=== PATIENT | male | born 1980 | race Caucasian/White ===

== ENCOUNTER 2018-02-19 14:37 | Emergency (ER) | payer OTHER ==
[~2018-02-19] VITALS: Ht 182.9 cm; Wt 103.0 kg
[~2018-02-19 14:37] MED LIST: CLON-527 PO; CLON-529 PO; HYDR-3686 PO; PER10325T PO; TRAZ150T78 PO
[2018-02-19] MEDS ORDERED: naloxone 2mg/2ml inj IV STA (14:39)
[2018-02-19] MEDS ORDERED: ondansetron/PF 4mg/2ml inj IV ONE (14:40)
[2018-02-19] MEDS ORDERED: normal saline 1000ML IV soln IVB ONE (14:40)
[2018-02-19] MEDS ORDERED: naloxone 2mg/2ml inj ONE (14:43)
[2018-02-19] MEDS ORDERED: naloxone 2mg/2ml inj IM STA (14:50)
[2018-02-19 15:13] LABS: BASOPHILS % (AUTO) 0.2 % (0-1); EOSINOPHILS # (AUTO) 0.2 X10'3 (0-0.9); HEMATOCRIT 44.4 % (42.0-52.0); HEMOGLOBIN 15.5 g/dl (14.0-17.9); LYMPHOCYTES # (AUTO) 0.6 X10'3 (1.1-4.8); LYMPHOCYTES % (AUTO) 6.7 % (21-51); MEAN CORPUSCULAR HEMOGLOBIN 32.5 PG (27.0-31.0); MEAN CORPUSCULAR VOLUME 92.9 FL (78-98); MEAN PLATELET VOLUME 9.2 FL (7.4-10.4); MONOCYTES # (AUTO) 0.5 X10'3 (0-0.9); MONOCYTES % (AUTO) 5.3 % (2-12); NEUTROPHILS # (AUTO) 8.2 X10'3 (1.8-7.7); NEUTROPHILS % (AUTO) 85.8 % (42-75); PLATELET COUNT 139 X10'3 (140-440); RED BLOOD COUNT 4.78 X10'6 (4.70-6.10); RED CELL DISTRIBUTION WIDTH 12.9 % (11.5-14.5); WHITE BLOOD COUNT 9.6 X10'3 (4.5-11.0)
[2018-02-19 15:28] LABS: ALANINE AMINOTRANSFERASE 199 U/L (12-78); ALBUMIN 3.8 G/DL (3.4-5.0); ALBUMIN/GLOBULIN RATIO 1.1 (1.1-1.5); ALKALINE PHOSPHATASE 60 IU/L (46-116); ANION GAP 10 (8-16); ASPARTATE AMINO TRANSFERASE 533 U/L (10-37); BILIRUBIN,TOTAL 1.1 MG/DL (0.1-1.0); BLOOD UREA NITROGEN 17 MG/DL (7-18); BUN/CREATININE RATIO 17.2 (5.4-32.0); CALCIUM 8.9 MG/DL (8.5-10.1); CHLORIDE 101 MMOL/L (99-107); CREATININE 0.99 MG/DL (0.60-1.10); GLUCOSE 154 MG/DL (70-104); POTASSIUM 3.5 MMOL/L (3.5-5.1); SODIUM 139 MMOL/L (135-145); TOTAL CARBON DIOXIDE 27.8 MMOL/L (24-32); TOTAL PROTEIN 7.2 G/DL (6.4-8.2); eGFR 86 ML/MIN
[2018-02-19 18:03] VITALS: BP 156/82
[2018-02-23] MEDS ORDERED: CLON0.1T20 PO (14:16)
== END 2018-02-19 18:08 | disposition home or self-care (01) ==
LOC: ER 14:37
DX: T40.1X1A Poisoning by heroin, accidental (unintentional), initial encounter (principal); F11.10 Opioid abuse, uncomplicated; Z79.899 Other long term (current) drug therapy; Y92.89 Other specified places as the place of occurrence of the external cause
CPT/HCPCS: 36415; 80053; 85025; 93005; 96361; 96374; 96375; 99285; J2310; J2405; J7030

== ENCOUNTER 2019-07-15 05:09 | Emergency (ER) | payer OTHER ==
[~2019-07-15] VITALS: Ht 185.4 cm; Wt 97.0 kg
[~2019-07-15 05:09] MED LIST changes: -CLON-529 PO; +CLON0.1T2 PO; -PER10325T PO
[2019-07-15] MEDS ORDERED: normal saline 1000ML IV soln IVB ONE ×2 (05:15→06:05)
[2019-07-15 05:38] LABS: BASOPHILS % (AUTO) 0.3 % (0-1); EOSINOPHILS % (AUTO) 0.4 % (0-6); HEMATOCRIT 48.3 % (42.0-52.0); HEMOGLOBIN 16.9 g/dl (14.0-17.9); LYMPHOCYTES # (AUTO) 1.4 X10'3 (1.1-4.8); LYMPHOCYTES % (AUTO) 18.1 % (21-51); MEAN CORPUSCULAR HEMOGLOBIN 33.7 PG (27.0-31.0); MEAN CORPUSCULAR HGB CONC 34.9 g/dL (33.0-36.5); MEAN CORPUSCULAR VOLUME 96.4 FL (78-98); MEAN PLATELET VOLUME 9.7 FL (7.4-10.4); MONOCYTES # (AUTO) 0.5 X10'3 (0-0.9); MONOCYTES % (AUTO) 6.1 % (2-12); NEUTROPHILS # (AUTO) 5.8 X10'3 (1.8-7.7); NEUTROPHILS % (AUTO) 75.1 % (42-75); PLATELET COUNT 145 X10'3 (140-440); RED BLOOD COUNT 5.01 X10'6 (4.70-6.10); RED CELL DISTRIBUTION WIDTH 12.8 % (11.5-14.5); WHITE BLOOD COUNT 7.7 X10'3 (4.5-11.0)
[2019-07-15 05:50] LABS: ALANINE AMINOTRANSFERASE 37 U/L (12-78); ALBUMIN 3.9 G/DL (3.4-5.0); ALKALINE PHOSPHATASE 76 IU/L (46-116); ANION GAP 15 (8-16); ASPARTATE AMINO TRANSFERASE 33 U/L (10-37); BILIRUBIN,TOTAL 0.8 MG/DL (0.1-1.0); BLOOD UREA NITROGEN 14 MG/DL (7-18); BUN/CREATININE RATIO 11.5 (5.4-32.0); CALCIUM 9.2 MG/DL (8.5-10.1); CHLORIDE 105 MMOL/L (99-107); CREATININE 1.22 MG/DL (0.60-1.10); ETHANOL 0.022 GM/DL (0.0-0.010); GLUCOSE 197 MG/DL (70-104); POTASSIUM 3.1 MMOL/L (3.5-5.1); SODIUM 145 MMOL/L (135-145); TOTAL CARBON DIOXIDE 25.1 MMOL/L (24-32); TOTAL PROTEIN 7.8 G/DL (6.4-8.2); eGFR 67 ML/MIN
[2019-07-15] MEDS ORDERED: POTASSIUM BICARB 20meq eff tab 20 MEQ TABLET.EFF PO ONE (06:05)
[2019-07-15] MEDS ORDERED: furosemide 10 MG/1 ML 10ml inj IV ONE (06:30)
[2019-07-15] MEDS ORDERED: CLON0.1T2 PO (06:35)
[2019-07-15] MEDS ORDERED: FISH12002 PO (06:35)
[2019-07-15] MEDS ORDERED: MULT-933 PO (06:35)
--- NOTE | 2019-07-15 06:36 | NUR ---
Pt's pulse ox dropped to 87-88% on room air. Pt is aware of the need for admission.
[2019-07-15 07:19] LABS: MAGNESIUM 1.7 MG/DL (1.5-2.4)
[2019-07-15] MEDS ORDERED: MIRT7.5T11 PO (07:31)
[2019-07-15] MEDS ORDERED: iohexol 350MG/ML 100ml bottle IV ONE (08:36)
[2019-07-15 10:11] VITALS: BP 137/66
== END 2019-07-15 10:05 | disposition left against medical advice (07) ==
LOC: ER 05:10
DX: J96.00 Acute respiratory failure, unspecified whether with hypoxia or hypercapnia (principal); F11.10 Opioid abuse, uncomplicated; F15.10 Other stimulant abuse, uncomplicated; J81.1 Chronic pulmonary edema; Z79.899 Other long term (current) drug therapy; Z98.890 Other specified postprocedural states
CPT/HCPCS: 36415; 71045; 71275; 80053; 80320; 82948; 83735; 83880; 84484; 85025; 93005; 96374; 99284; J1940; J7030; Q9967

== ENCOUNTER 2021-12-29 20:40 | Emergency (ER) | payer OTHER ==
[~2021-12-29] VITALS: Ht 182.9 cm; Wt 95.5 kg
[~2021-12-29 20:40] MED LIST changes: -CLON-527 PO; +FISH12002 PO; -HYDR-3686 PO; +MIRT7.5T11 PO; +MULT-933 PO; -TRAZ150T78 PO
--- NOTE | 2021-12-29 21:28 | NUR ---
Pt presents to ED related to left foot pain[place]. Noticed swelling and drainage ove the last few days.
[2021-12-29] MEDS ORDERED: DOXY100C76 PO (23:12)
[2021-12-29] MEDS ORDERED: DOXYCYCLINE 100MG CAPSULE PO STA (23:12)
[2021-12-30 01:49] VITALS: BP 130/82
== END 2021-12-30 01:51 | disposition home or self-care (01) ==
LOC: ER 20:40
DX: L03.116 Cellulitis of left lower limb (principal); M79.672 Pain in left foot; F11.90 Opioid use, unspecified, uncomplicated; Z98.890 Other specified postprocedural states; Z79.2 Long term (current) use of antibiotics; Z79.899 Other long term (current) drug therapy
CPT/HCPCS: 73630; 99284

== ENCOUNTER 2022-09-21 23:07 | Inpatient (IN) | payer OTHER ==
[~2022-09-21] VITALS: Ht 185.4 cm; Wt 90.9 kg
[2022-09-21] MEDS ORDERED: iohexol 300mg/ml 100ml inj. ONE (23:47)
[2022-09-21] MEDS ORDERED: TETanus/Pertussis (Acell)/Diphther VAC/PF (Tdap-Adult) 0.5ml syringe IMVAC ONE (23:50)
[2022-09-22] MEDS ORDERED: morphine 4 MG/ML inj SYRINge IM ONE (00:10)
[2022-09-22] MEDS ORDERED: normal saline 1000ML IV soln IVB ONE (00:10)
[2022-09-22 00:26] LABS: BASOPHILS % (AUTO) 0.2 % (0-1); EOSINOPHILS # (AUTO) 0.1 X10'3 (0-0.9); EOSINOPHILS % (AUTO) 0.4 % (0-6); HEMATOCRIT 38.2 % (42.0-52.0); HEMOGLOBIN 13.1 g/dl (14.0-17.9); LYMPHOCYTES # (AUTO) 0.9 X10'3 (1.1-4.8); LYMPHOCYTES % (AUTO) 6.3 % (21-51); MEAN CORPUSCULAR HEMOGLOBIN 30.2 PG (27.0-31.0); MEAN CORPUSCULAR HGB CONC 34.3 g/dL (33.0-36.5); MEAN CORPUSCULAR VOLUME 88.2 FL (78-98); NEUTROPHILS # (AUTO) 11.8 X10'3 (1.8-7.7); NEUTROPHILS % (AUTO) 86.1 % (42-75); PLATELET COUNT 218 X10'3 (140-440); RED BLOOD COUNT 4.33 X10'6 (4.70-6.10); RED CELL DISTRIBUTION WIDTH 13.4 % (11.5-14.5); WHITE BLOOD COUNT 13.7 X10'3 (4.5-11.0)
[2022-09-22 00:41] LABS: ALANINE AMINOTRANSFERASE 27 U/L (12-78); ALBUMIN 3.8 G/DL (3.4-5.0); ALBUMIN/GLOBULIN RATIO 0.9 (1.1-1.5); ALKALINE PHOSPHATASE 100 IU/L (46-116); ANION GAP 8 (8-16); ASPARTATE AMINO TRANSFERASE 40 U/L (10-37); BILIRUBIN,TOTAL 0.8 MG/DL (0.1-1.0); BLOOD UREA NITROGEN 18 MG/DL (7-18); BUN/CREATININE RATIO 19.4 (5.4-32.0); CALCIUM 8.9 MG/DL (8.5-10.1); CHLORIDE 98 MMOL/L (99-107); CREATINE KINASE 481 U/L (39-308); CREATININE 0.93 MG/DL (0.60-1.10); GLUCOSE 112 MG/DL (70-104); LIPASE 454 U/L (73-393); POTASSIUM 3.9 MMOL/L (3.5-5.1); SODIUM 134 MMOL/L (135-145); TOTAL CARBON DIOXIDE 27.8 MMOL/L (24-32); eGFR 90 ML/MIN
[2022-09-22] MEDS ORDERED: AMOX-117 PO (01:28)
[2022-09-22 02:06] LABS: ETHANOL < 0.010 GM/DL (0.0-0.010)
[2022-09-22 02:26] LABS: CLARITY,URINE SLIGHTLY CLOUDY (Clear); COLOR,URINE YELLOW (Yellow); GLUCOSE, URINE NEGATIVE (Neg); KETONES,URINE NEGATIVE (Neg); LEUKOCYTE ESTERASE ,URINE NEGATIVE (Neg); NITRITES, URINE NEGATIVE (Neg); OCCULT BLOOD,URINE LARGE (Neg); PROTEIN,URINE NEGATIVE (Neg); UROBILINOGEN,URINE 0.2 E.U/dL (0.2-1.0)
[2022-09-22] MEDS ORDERED: magnesium hydroxide 30ml (MOM) UD suspension PO PRN (02:30)
[2022-09-22] MEDS ORDERED: mag hydrox/Alum hydrox/simeth 30ml oral suspension PO PRN (02:30)
[2022-09-22] MEDS ORDERED: acetaminophen 325mg tablet PO PRN ×2 (02:30)
[2022-09-22] MEDS ORDERED: ondansetron/PF 4mg/2ml inj IV PRN (02:30)
[2022-09-22] MEDS ORDERED: bisacodyl 10mg suppository rectal RC PRN (02:30)
[2022-09-22] MEDS ORDERED: ondansetron 4mg rapidly disintigrating tab PO PRN (02:30)
[2022-09-22] MEDS: normal saline 1000ml 1,000 ML IV SCH ×3 (02:30→21:27)
[2022-09-22] MEDS ORDERED: morphine 2 MG/ML inj. syringe IV PRN (02:30)
[2022-09-22] MEDS ORDERED: diphenhydrAMINE 25mg capsule PO PRN (02:30)
[2022-09-22] MEDS ORDERED: diphenhydrAMINE 50 mg/ml inj IV PRN (02:30)
[2022-09-22] MEDS ORDERED: HYDROcodone/acetaminophen 5mg/325mg tablet PO PRN (02:30)
[2022-09-22 02:38] LABS: UA COLLECTION TYPE VOIDED
[2022-09-22 02:47] LABS: RBC,URINE TNTC /HPF (0-2); SQUAMOUS EPITHELIAL CELL,UR NONE SEEN /LPF (FEW)
[2022-09-22 02:48] LABS: BACTERIA,URINE FEW /HPF (Neg); WBC,URINE 0-4 /HPF (0-4)
[2022-09-22 02:49] LABS: URINE AMPHETAMINE SCREEN POSITIVE (Neg); URINE BARBITUATE SCREEN NEGATIVE (Neg); URINE BENZODIAZEPINES SCREEN POSITIVE (Neg); URINE CANNABINOID SCREEN NEGATIVE (Neg); URINE COCAINE SCREEN NEGATIVE (Neg); URINE METHADONE SCREEN NEGATIVE (Neg); URINE OPIATE SCREEN POSITIVE (Neg); URINE PHENCYCLIDINE SCREEN NEGATIVE (Neg)
[2022-09-22 02:53] LABS: HEMOGLOBIN A1C 5.4 % (4.5-6.2)
[2022-09-22 03:16] LABS: MAGNESIUM 1.7 MG/DL (1.5-2.4); PHOSPHORUS 2.8 MG/DL (2.3-4.5)
[2022-09-22] MEDS: HYDROcodone/acetaminophen 10/325mg tab PO PRN ×3 (06:04→21:12)
[2022-09-22] MEDS: docusate sod 100mg capsule PO SCH ×2 (07:57→21:10)
[2022-09-22] MEDS: CefTRIAXone/D5W-Rocephin 1gm 50 ML IV SCH (08:39)
[2022-09-22] MEDS: pantoprazole 40mg Tablet.DR PO SCH (08:39)
[2022-09-22] MEDS: morphine 2 MG/ML inj. syringe IV PRN ×2 (08:40→12:50)
[2022-09-22] MEDS: aspirin 81mg, enteric-coated 1 TAB TABLET.DR PO SCH (08:40)
--- NOTE | 2022-09-22 12:51 | NUR ---
Wound care came by and cleaned the pt up and dresssed his wounds
[2022-09-22] MEDS ORDERED: NO HOME MEDS (12:58)
[2022-09-22] MEDS: HYDROmorphone inj. 0.5 MG/0.5 ML DISP.SYRIN IV PRN ×2 (17:28→22:50)
[2022-09-22 18:00] VITALS: BP 97/75
--- NOTE | 2022-09-22 18:15 | NUR ---
Patient in room PCU 3013. I have received report from Sarah ADAMS and had the opportunity to ask questions and assume patient care.
[2022-09-22] MEDS ORDERED: temazepam 15mg capsule PO PRN (21:00)
[2022-09-22 22:00] VITALS: BP 134/77
[2022-09-23] MEDS: HYDROcodone/acetaminophen 10/325mg tab PO PRN ×2 (03:45→09:14)
--- NOTE | 2022-09-23 06:28 | NUR ---
Problems reprioritized. Patient report given, questions answered & plan of care reviewed with Nicolas LOCKHART.
[2022-09-23] MEDS: HYDROmorphone inj. 0.5 MG/0.5 ML DISP.SYRIN IV PRN (06:46)
[2022-09-23 06:52] LABS: BASOPHILS % (AUTO) 0.3 % (0-1); EOSINOPHILS % (AUTO) 0.5 % (0-6); HEMATOCRIT 38.9 % (42.0-52.0); HEMOGLOBIN 13.5 g/dl (14.0-17.9); LYMPHOCYTES % (AUTO) 10.5 % (21-51); MEAN CORPUSCULAR HEMOGLOBIN 30.4 PG (27.0-31.0); MEAN CORPUSCULAR HGB CONC 34.6 g/dL (33.0-36.5); MEAN CORPUSCULAR VOLUME 87.9 FL (78-98); MEAN PLATELET VOLUME 9.2 FL (7.4-10.4); MONOCYTES # (AUTO) 0.8 X10'3 (0-0.9); NEUTROPHILS # (AUTO) 7.9 X10'3 (1.8-7.7); NEUTROPHILS % (AUTO) 80.7 % (42-75); PLATELET COUNT 199 X10'3 (140-440); RED BLOOD COUNT 4.43 X10'6 (4.70-6.10); RED CELL DISTRIBUTION WIDTH 13.2 % (11.5-14.5); WHITE BLOOD COUNT 9.8 X10'3 (4.5-11.0)
[2022-09-23 07:30] LABS: ALANINE AMINOTRANSFERASE 29 U/L (12-78); ALBUMIN 3.2 G/DL (3.4-5.0); ALBUMIN/GLOBULIN RATIO 0.8 (1.1-1.5); ALKALINE PHOSPHATASE 97 IU/L (46-116); ANION GAP 7 (8-16); ASPARTATE AMINO TRANSFERASE 44 U/L (10-37); BILIRUBIN,TOTAL 0.7 MG/DL (0.1-1.0); BLOOD UREA NITROGEN 7 MG/DL (7-18); BUN/CREATININE RATIO 9.1 (5.4-32.0); CALCIUM 8.9 MG/DL (8.5-10.1); CHLORIDE 103 MMOL/L (99-107); CHOL/HDL RATIO 2.5 (0.00-4.99); CHOLESTEROL 125 MG/DL (0-200); CREATININE 0.77 MG/DL (0.60-1.10); GLUCOSE 118 MG/DL (70-104); HDL CHOLESTEROL 50 MG/DL (35-60); LDL CHOLESTEROL 63 MG/DL (50-100); POTASSIUM 3.6 MMOL/L (3.5-5.1); SODIUM 137 MMOL/L (135-145); TOTAL CARBON DIOXIDE 26.6 MMOL/L (24-32); TOTAL PROTEIN 7.4 G/DL (6.4-8.2); TRIGLYCERIDES 63 MG/DL (20-135); eGFR > 90 ML/MIN
[2022-09-23] MEDS: pantoprazole 40mg Tablet.DR PO SCH (09:14)
[2022-09-23] MEDS: docusate sod 100mg capsule PO SCH (09:14)
[2022-09-23] MEDS: CefTRIAXone/D5W-Rocephin 1gm 50 ML IV SCH (09:14)
[2022-09-23] MEDS: aspirin 81mg, enteric-coated 1 TAB TABLET.DR PO SCH (09:14)
[2022-09-23] MEDS: normal saline 1000ml 1,000 ML IV SCH (09:15)
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
--- NOTE | 2022-09-25 13:41 | NUR ---
Received order for consult. Patient left AMA. I called patient and was unable to leave a message. I will call again.
== END 2022-09-23 11:49 | disposition left against medical advice (07) | DRG 85 ==
LOC: ER 23:07 → ED HOLD 09-22 02:34 → PCU 3S 09-22 16:10
PROVIDERS: ADMIT Family Medicine; ATTEND Family Medicine
PROC: 3E0234Z Introduction of Serum, Toxoid and Vaccine into Muscle, Percutaneous Approach (ICD-10-PCS; principal; 2022-09-21)
DX: S02.832A Fracture of medial orbital wall, left side, initial encounter for closed fracture (principal); I21.A1 Myocardial infarction type 2; I50.32 Chronic diastolic (congestive) heart failure; M62.82 Rhabdomyolysis; S00.83XA Contusion of other part of head, initial encounter; J32.0 Chronic maxillary sinusitis; D64.9 Anemia, unspecified; F11.90 Opioid use, unspecified, uncomplicated; F15.129 Other stimulant abuse with intoxication, unspecified; G93.0 Cerebral cysts; I11.0 Hypertensive heart disease with heart failure; I27.20 Pulmonary hypertension, unspecified; J32.2 Chronic ethmoidal sinusitis; R31.0 Gross hematuria; Z53.29 Procedure and treatment not carried out because of patient's decision for other reasons; M25.511 Pain in right shoulder; M25.512 Pain in left shoulder; Z23 Encounter for immunization; V29.99XA Rider (driver) (passenger) of other motorcycle injured in unspecified traffic accident, initial encounter; Y92.488 Other paved roadways as the place of occurrence of the external cause; Y99.8 Other external cause status; Z79.899 Other long term (current) drug therapy; Y93.55 Activity, bike riding
CPT/HCPCS: 36415; 70450; 71260; 72125; 74177; 80053; 80061; 80305; 80320; 81001; 82550; 82948; 83036; 83690; 83735; 83880; 84100; 84443; 84484; 85025; 85610; 86885; 86900; 86901; 87081; 90715; 93005; 93306; 99285; A6223; A6449; G0378; J0696; J1170; J2270; J2405; J7030; L0172; Q9967

== ENCOUNTER 2023-04-02 10:59 | Emergency (ER) | payer OTHER ==
[~2023-04-02] VITALS: Ht 182.9 cm; Wt 200.0 kg
[~2023-04-02 10:59] MED LIST changes: -CLON0.1T2 PO; -FISH12002 PO; -MIRT7.5T11 PO; -MULT-933 PO; +NO HOME MEDS
--- NOTE | 2023-04-02 11:41 | NUR ---
SUBSTANCE USE NAVIGATOR AT BEDSIDE, PT ALERT AND CONVERSING
--- NOTE | 2023-04-02 11:55 | NUR ---
PER DR SHELTON WE WILL MONITOR THIS PATIENT WITHOUT FURTHER INTERVENTION AT THIS TIME.
--- NOTE | 2023-04-02 11:58 | NUR ---
PT RECOMMENDED TO RETURN TO [facility] TOMORROW TO START ON SUBOXONE 0900
--- NOTE | 2023-04-02 12:02 | NUR ---
Met with patient in regards to substance use and to see if patient was interested in resources for treatment options. Patient is interested. Patient was supposed to start Suboxone today and ended up relapsing. I spoke with Tressa Leach and she recommended patient come in tomorrow at 9:00. Patient agreed. I gave patient my card to call me with any questions.
--- NOTE | 2023-04-02 13:14 | NUR ---
CALL PLACED TO [employer]TER [employer]IR[employer] TO [facility]RANGE [facility] HOME. MESSAGE LEFT
[2023-04-02 13:24] VITALS: BP 129/84
== END 2023-04-02 13:26 | disposition home or self-care (01) ==
LOC: ER 10:59
DX: T40.601A Poisoning by unspecified narcotics, accidental (unintentional), initial encounter (principal); Y92.89 Other specified places as the place of occurrence of the external cause
CPT/HCPCS: 99285; A4615